=== PATIENT | female | born 1990 | race Caucasian/White ===

== ENCOUNTER 2022-11-10 07:10 | Inpatient (IN) | payer OTHER ==
[2022-11-10] MEDS ORDERED: IBUPROFEN 600 MG TABLET (FP) PO ONE (08:08)
[2022-11-10] MEDS ORDERED: METHYLERGONOVINE MALEATE 0.2 MG/1 ML AMP IM PRN (08:11)
[2022-11-10] MEDS ORDERED: WITCH HAZEL 50% (TUCKS) 40 PAD/JAR PAD TP PRN (08:11)
[2022-11-10] MEDS ORDERED: BENZOCAINE 20% 57 GM BOTTLE TP PRN (08:11)
[2022-11-10] MEDS ORDERED: BISACODYL 10 MG SUPP.RECT RC PRN (08:11)
[2022-11-10] MEDS ORDERED: BENZOCAINE 28 GM HEMORRHOIDAL OINTMENT TP PRN (08:11)
[2022-11-10] MEDS ORDERED: OXYTOCIN 20 UNITS in 0.9% NS 20 UNIT/1,000 ML INFUS.BAG IV SCH (08:15)
[2022-11-10] MEDS: IBUPROFEN 600 MG TABLET (FP) PO PRN (08:15)
[2022-11-10 08:32] LABS: CORD BASE EXCESS -0.7 mmol/L (0-2); CORD HCO3 24.2 mmHg (20-29); CORD PCO2 40.8 mmHg (30-78); CORD pH 7.391 (7.14-7.44)
[2022-11-10 08:37] LABS: CORD HCO3 25.2 mmHg (20-29); CORD PCO2 51.6 mmHg (30-78); CORD pH 7.306 (7.14-7.44)
[2022-11-10 08:51] VITALS: BMI 32.1
[2022-11-10 08:51] LABS: BASO % 0.2 % (0-2.0); EOS % 0.3 % (0-4.5); HEMATOCRIT 37.1 % (32.4-45.2); HEMOGLOBIN 12.6 GM/dL (10.7-15.3); LYMPH % 14.8 % (8-40); MCHC 33.9 g/dl (32.0-36.0); MEAN CELL VOLUME 85.7 fl (80-96); MEAN PLT VOLUME 10.1 fl (7.5-11.1); MONO % 4.3 % (3.8-10.2); NEUT % 80.4 % (42.8-82.8); PLATELET COUNT 250 10^3/uL (134-434); RBC 4.33 M/mm3 (3.60-5.2); RDW 15.6 % (11.6-15.6); WHITE BLOOD COUNT 10.6 K/mm3 (4.0-10.0)
[2022-11-10 08:52] LABS: INR 0.91 (0.83-1.09); PROTHROMBIN TIME (PATIENT) 10.6 SEC (9.7-13.0)
[2022-11-10 08:55] LABS: ACTIVATED PTT 24.4 SECONDS (25.2-36.5)
[2022-11-10 09:06] LABS: CALCIUM 8.8 mg/dL (8.5-10.1)
[2022-11-10 09:07] LABS: ALBUMIN 2.5 g/dl (3.4-5.0); BLOOD UREA NITROGEN 6.4 mg/dL (7-18)
[2022-11-10 09:10] LABS: CREATININE 0.5 mg/dL (0.55-1.3)
[2022-11-10 09:11] LABS: BILIRUBIN,TOTAL 0.2 mg/dL (0.2-1); TOT PROT 5.9 g/dl (6.4-8.2)
[2022-11-10] MEDS: ACETAMINOPHEN 325 MG TABLET (FP) PO PRN (10:50)
[2022-11-10] MEDS ORDERED: oxyCODONE HCL 5 MG TABLET PO PRN (11:00)
[2022-11-10 12:02] LABS: HEPATITIS B SURFACE AG MATERN NON-REACTIVE (NONREACTIVE)
[2022-11-10 12:03] LABS: SYPHILIS W/ RPR CONF NON-REACTIVE (NONREACTIVE)
[2022-11-10 12:31] LABS: HIV INTERPRETATION NEGATIVE (NEGATIVE)
[2022-11-11 06:47] LABS: BASO % 0.4 % (0-2.0); EOS % 0.9 % (0-4.5); HEMATOCRIT 34.1 % (32.4-45.2); HEMOGLOBIN 11.4 GM/dL (10.7-15.3); LYMPH % 20.4 % (8-40); MCH 28.6 pg (25.7-33.7); MCHC 33.4 g/dl (32.0-36.0); MEAN CELL VOLUME 85.7 fl (80-96); MEAN PLT VOLUME 9.8 fl (7.5-11.1); MONO % 4.8 % (3.8-10.2); NEUT % 73.5 % (42.8-82.8); PLATELET COUNT 238 10^3/uL (134-434); RBC 3.98 M/mm3 (3.60-5.2)
[2022-11-11] MEDS ORDERED: DIPHTH,PERTUSS(ACELL),TET 0.5 ML DISP.SYRIN IM ONE (10:00)
[2022-11-11] MEDS: ACETAMINOPHEN 325 MG TABLET (FP) PO PRN (14:26)
[2022-11-11] MEDS: IBUPROFEN 600 MG TABLET (FP) PO PRN (20:45)
[2022-11-11] MEDS ORDERED: SENNOSIDES/DOCUSATE COMBO (SENNA PLUS) TABLET (UD) PO PRN (22:00)
[2022-11-12] MEDS: IBUPROFEN 600 MG TABLET (FP) PO PRN (07:02)
[2022-11-12 09:39] VITALS: BP 119/79; PULSE 74; RESP 16; TEMP 98.4
== END 2022-11-12 13:15 | disposition home or self-care (01) | DRG 560 ==
LOC: JLDR 07:10 → J3W 10:08
PROVIDERS: ADMIT Obstetrics & Gynecology; ATTEND Obstetrics & Gynecology
PROC: 10E0XZZ Delivery of Products of Conception, External Approach (ICD-10-PCS; principal; 2022-11-10)
DX: O80 Encounter for full-term uncomplicated delivery (principal); Z3A.39 39 weeks gestation of pregnancy; Z37.0 Single live birth
CPT/HCPCS: 36415; 36600; 80053; 82803; 85025; 85610; 85730; 86780; 86850; 86900; 86901; 87340; 87389; C9803-CS; U0003; U0005